=== PATIENT | male | born 1990 | race Caucasian/White ===

== ENCOUNTER 2017-12-20 08:59 | Day surgery (SDC) | payer MEDICAID, SELFPAY ==
[2017-12-20 09:27] VITALS: BP 153/91; PULSE 81; RESP 16; TEMP 36.4; O2SAT 98; BMI 54.9
--- NOTE | 2017-12-20 10:50 | TONS_PTH ---
PATIENT: LIAM CUENCA LOC: [facility] [place] U#:[id number] AGE/SX: 27/M ROOM: RE12/20/[address]: Dr. Spike Gil MD : 1990 BED: DIS: 12/20/2017 SPEC #: [id number] RECD: 12/20/17 13:23 STATUS: RANDAL MENA #: [id number] RONNIE: 12/20/17 10:[address]: Spike Gil DEPT: SURGICAL PATHOLOGY RECD BY: Florentin Gayle ENTERED: 12/20/17 13:35 SP TYPE: TONSILS OTHR DR: Out of [facility] Doctor Tissues: Tonsil, NOS Procedures: Surgery Specimen Level III HEADER OPERATION: Tonsillectomy PRE-OP DIAGNOSIS: Chronic tonsillitis, nasal congestion TISSUE SUBMITTED: Tonsils, tie on right MICROSCOPIC DIAGNOSIS Bilateral tonsils: Reactive lymphoid hyperplasia, consistent with chronic tonsillitis. SJ:andres 7/25/18 MICROSCOPIC DESCRIPTION Slides are reviewed. GROSS DESCRIPTION Received is one container labeled with the patient's name and designated tonsils - tie on right are two tonsils that in aggregate weigh 18 gm. The right tonsil has a tie on it and measures 4 x 2.5 x 1.5 cm. The left tonsil measures 4.5 x 2.5 x 2 cm. Both tonsils are similar in appearance. The external surfaces are pink-jacobson, smooth, glistening and somewhat lobulated. Focally they are hemorrhagic, granular and bear cautery artifact. Serial cross sections through the tonsils reveal normal tonsillar architecture. Sections are submitted in two cassettes as follows: 1 - right tonsil, 2 - left tonsil. / SJ:andres 12/20/17 TC:3 [facility]: [id number] [phone]
--- NOTE | 2017-12-20 11:42 | PCM.OPRPT ---
Problem List (1) Chronic tonsillitis Status: Chronic (2) Nasal valve collapse Status: Chronic Report of Operation Date of Procedure: 12/20/17 Pre-Operative Diagnosis: 1. chronic tonsillitis. 2. internal nasal valve dysfunction, right and left Post-Operative Diagnosis: 1. chronic tonsillitis. 2. internal nasal valve dysfunction, right and left Surgery/Procedure Performed:: 1. tonsillectomy. 2. correction internal nasal valve, right and left Type of Anesthesia:: General Drains: none Description of Procedure: on the day of the procedure, after appropriate informed consent was obtained, the patient was brought to the operating room and placed in supine position on the operating table. he was placed under general endotracheal anesthesia by the anesthesiologist; the endotracheal tube was secured, the eyes were taped. the nose was injected with lidocaine/epinephrine. the table was rotated 90 degrees toward the surgeon. a lewis-latanya mouthgag was inserted into the oral cavity with care not to damage the lips, teeth or gums. it was suspended from the salcido. a red rubber catheter was introduced transnasally to elevate the soft palate. the right tonsil was grasped with a curved allis clamp, retracted medially, dissected and removed using bovie electrocautery. hemostasis was achieved with suction cautery. the left tonsil was grasped with a curved allis clamp, retracted medially, dissected and removed using bovie electrocautery. hemostasis was achieved with suction cautery. after appropriate landmark markings, the right nasal ala was everted and the latera trocar was inserted into the valve superficial to the lower lateral cartilage and deep to the skin and soft tissue envelope. the implant was advanced and the trocar retracted. the implant was palpated and was in the correct position. the nasal interior was inspected and had no abnormalities. after appropriate landmark markings, the left nasal ala was everted and the latera trocar was inserted into the valve superficial to the lower lateral cartilage and deep to the skin and soft tissue envelope. the implant was advanced and the trocar retracted. the implant was palpated and was in the correct position. the nasal interior was inspected and had no abnormalities. the patient was awoken from anesthesia and transferred to the PACU in stable condition. Grafts/Implants Used: spirox latera
[2017-12-20] MEDS: Oxymetazoline 0.05% 1 SPRAY SPRAY.BTL 15 SPRAY (12:00)
--- NOTE | 2017-12-20 12:34 | DCINST_ITS ---
- Discharge Diagnoses Current Active Problems: Current Active and Chronic Problems Chronic tonsillitis (Chronic) Nasal valve collapse (Chronic) You will use the following diet at home:: No restrictions Your food should be the consistency of: Mechanical soft (ground) Discharge Activity: Return to Normal Activity, May not drive while taking narcotic pain medications. Call your doctor if your incision/area has: Sudden Increased Bleeding Allergies/Adverse Reactions: Allergies No Known Allergies Allergy (Verified 12/13/17 11:57) Medications to take at Discharge NK [NK] 12/13/17 Primary Care Physician: Michelle Sexton,Out of [Primary Care Provider] - Test Results: Test results from this visit will be discussed in further detail at your follow- up appointment, if applicable. Please Follow Up With: Shantanu Gil MD When: 3 weeks
[2017-12-20 12:42] VITALS: BP 153/91; BP 156/79; PULSE 85; RESP 22; TEMP 36.2; O2SAT 96
[2017-12-20 12:45] VITALS: BP 117/75; BP 153/91; PULSE 99; RESP 20; O2SAT 92
[2017-12-20 13:00] VITALS: BP 132/68; BP 153/91; PULSE 94; RESP 16; O2SAT 91
[2017-12-20 13:16] VITALS: BP 149/86; BP 153/91; PULSE 101; RESP 18; TEMP 37.1; O2SAT 94
[2017-12-20] MEDS: HYDROcodone Bitartrate/Apap 5/325 Tablet PO (14:13)
[2017-12-20 14:31] VITALS: BP 153/91
== END 2017-12-20 14:33 | disposition home or self-care (01) ==
LOC: SDC 09:01 → AC 09:01
PROVIDERS: Visit Provider Otolaryngology
PROC: (CPT 30465; principal; 2017-12-20 10:35)
PROC: (CPT 30520; 2017-12-20 10:35)
DX: J35.01 Chronic tonsillitis (principal); M95.0 Acquired deformity of nose; R09.81 Nasal congestion; F17.210 Nicotine dependence, cigarettes, uncomplicated
CPT/HCPCS: 00160; 30465; 42826; 88304; J7120; J2405